=== PATIENT | male | born 1975 | race Two or more races ===

== ENCOUNTER 2024-10-12 10:11 | Emergency (ER) | payer OTHER ==
[~2024-10-12] VITALS: Ht 175.3 cm; Wt 83.5 kg
[2024-10-12 11:15] LABS: BASO % 1.0 % (0.1-1.2); EOS # 0.02 (0.04-0.54); EOS % 0.4 % (0.7-7.0); LYMPH # 0.77 (1.18-3.74); LYMPH % 15.7 % (19.3-53.1); MEAN PLATELET VOLUME 9.80 fl (9.4-12.4); MONO # 0.72 (0.24-0.82); NEUT # 3.34 (1.56-6.13); NEUT % 67.9 % (34.0-71.1); RED CELL DISTRIBUTION WIDTH 13.3 % (11.6-14.4)
[2024-10-12 11:16] LABS: MONO % 14.6 % (4.7-12.5)
[2024-10-12 14:52] LABS: COVID-19 AG NEGATIVE (NEGATIVE)
== END 2024-10-12 12:54 | disposition home or self-care (01) ==
LOC: ER 10:11
PROVIDERS: General Practice
DX: J10.1 Influenza due to other identified influenza virus with other respiratory manifestations (principal); Z20.822 Contact with and (suspected) exposure to COVID-19